=== PATIENT | male | born 1965 | race African-American/Black ===

== ENCOUNTER 2019-05-02 09:58 | Day surgery (SDC) | payer BC, OTHER ==
[2019-05-02] VITALS (16 sets, daily range): BP systolic 110–149; BP diastolic 56–90; PULSE 56–88; RESP 10–21; Ht 180.3 cm; Wt 78.4 kg
[~2019-05-02] VITALS: Ht 180.3 cm; Wt 78.4 kg
--- NOTE | 2019-05-02 06:17 | HPN ---
Date/Time of Note Date/Time of Note DATE: 05/02/19 TIME: 06:17 Interval H&P Admission Note Pt. seen H&P reviewed: No system changes JACOB MARTINEZ MD May 02, 2019 06:17
--- NOTE | 2019-05-02 06:17 | HP ---
Date/Time of Note Date/Time of Note DATE: 05/02/19 TIME: 06:14 Assessment/Plan VTE Prophylaxis SCD applied (from Nsg): Yes Pharmacological prophylaxis: NA/contraindicated, other (Aspirin) Pharm contraindication: low risk/ambulating Lines/Catheters IV Catheter Type (from Nrsg): Saline Lock Urinary Cath still in place: No Assessment/Plan Assessment/Plan Assessment supraspinatus tendon tear Plan: Surgery the form of an arthroscopy with rotator cuff repair and decompression. HPI/ROS Admit Date/Time Admit Date/Time May 02, 2019 Hx of Present Illness Left shoulder pain following trauma after fall ROS No contributory history PMH/Family/Social Past Medical History Medical History: no pertinent history Past Surgical History History of meniscectomy Past Surgical Hx: noncontributory Family History Significant Family History: no pertinent family hx Social History Alcohol Use: occasionally Smoking Status: Current some day smoker Drug Use: none Exam/Review of Systems Vital Signs Vitals Blood pressure 130/70, respirations 24, heart rate 80 Exam Exam Normal appearance Musculoskeletal: joint tenderness (Significant weakness with supraspinatus testing) JACOB MARTINEZ MD May 02, 2019 06:17
--- NOTE | 2019-05-02 06:22 | OPR ---
Date/Time of Note Date/Time of Note DATE: 05/02/19 TIME: 06:20 Operative Report Procedure Date: May 02, 2019 Preoperative Diagnosis Left shoulder rotator cuff tear Postoperative Diagnosis 1. Left shoulder supraspinatus tendon tear 2. Left shoulder acromioclavicular joint arthritis 3. Left shoulder impingement 4. 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 Left shoulder arthroscopic rotator cuff repair 2. Left shoulder arthroscopic distal clavicle excision 3. Left shoulder arthroscopic acromioplasty 4. Left shoulder arthroscopic extensive debridement of glenohumeral joint and labrum. Surgeon see signature line Leather Drier Nelson Cid PA-C Anesthesia Type: general Estimated Blood Loss: minimal Transfusion none Specimen None Grafts/Implants See op note Complications none Pt Condition Post Procedure: stable Disposition: PACU Procedure Description SURGICAL TECH SURGEON: Nelson Cid PA-C was asked to be present at my request as a result of the complexity associated with this procedure including positioning of the extremities, manipulation of the arthroscope and assistance with suture management and implantation of suture anchors. In my opinion, the assistance offered by a surgical tech is insufficient and Mr. Cid should be compensated for his time. PROCEDURE IN DETAIL: Following the administration of general anesthesia supplemented with a peripheral nerve block for postoperative pain control, the patient was examined under anesthesia. Examination of the left shoulder revealed a range of motion of 140 degrees of forward flexion, 100 degrees of abduction, 85 degrees of external rotation and 20 degrees of internal rotation. There is no instability. The patient was then placed in the right lateral decubitus position. Sterile prep and drape was then undertaken of the left shoulder. Anterior and posterior glenohumeral portals were established. Glenohumeral arthroscopy revealed that the humeral and glenoid articular cartilage revealed some diffuse grade 2 changes and in the central portion of the humerus there was some mild grade 2 changes also in a diffuse fashion. There was some mild softening in a generalized fashion.. The superior labrum was diffusely torn with extensive fraying that extended from 9:00 to the 3 o'clock position. The biceps had severe synovitis with a stable biceps anchor. The subscapularis was visualized and it had a solid attachment. No abnormalities were noted anteriorly with the exception of the very severe synovitis which was actually in the notch itself. Further evaluation of the supraspinatus revealed complete tear of the suprasp inatus measuring 1 x 2 cm. Some significant frayed tissue was also noted. Infraspinatus was normal. There was severe synovitis in the entire superior aspect of the joint. The superior labrum then debrided extensively from the 9:00 to the 3 o'clock position was undertaken down to stable tissue. Severe synovitis was also debrided down to stable tissue. The biceps tendon was also debrided and the synovitic reactive tissue from around it removed. The subacromial space was then entered and very severe bursal reactive tissue was noted. There was severe synovitis and a very thickened bursa with several layers of thickening over the rotator cuff tear. There was a thickened coracoacromial ligament, with a 5 to 7 mm acromial prominence noted, which extended medially as well into the acromioclavicular joint. The anterior acromion was then cleared of soft tissue and the coracoacromial ligament released. The acromion was then resected approximately 5 to 7 mm down to a flat surface. The outer surface of the rotator cuff was then inspected. The rotator cuff tear was noted to be complete and a debridement of this area was undertaken down to stable tissue in order to prepare for the repair. The subacromial space was then further evaluated medially. The acromiocl avicular joint was then skeletonized and a significant inferior osteophyte was noted. The AC joint capsule was then opened and the distal clavicle was skeletonized for a distance of 10 mm. The marie was then inserted and 10 mm of the distal clavicle were then excised. The rotator cuff repair was then undertaken. Specifically, a 4.5 mm, triple loaded titanium anchor was then inserted into the tuberosity. The sutures were then passed in a mattress fashion and tied using sliding, locking knots. A solid repair of the rotator cuff was completed. The joint was then thoroughly irrigated bony debris removed, the skin was approximated using 4-0 Monocryl, followed by a sterile dressing. A sling was then applied. The patient was awakened and transported to the recovery room in stable condition. JACOB MARTINEZ MD May 02, 2019 06:22
[~2019-05-02 09:58] MED LIST: BUPIVACAINE 0.5% (SDV) 30 ML, morphine SULFATE (PF) 8 MG, EPINEPHrine 0.3 MG, KETOROLAC... IRR SCH; CEFAZOLIN 2 GM/50 ML (PMX) 50 ML IVPB ONE
[2019-05-02] MEDS ORDERED: GABAPENTIN 300 MG CAP PO ONE (12:00)
[2019-05-02] MEDS ORDERED: DEXAMETHASONE 2 MG TAB PO ONE (12:00)
--- NOTE | 2019-05-02 12:28 | PREAC ---
Date/Time of Note Date/Time of Note DATE: 05/02/19 TIME: 12:27 Anesthesia Eval and Record Evaluation Time Pre-Procedure Interview DATE: 05/02/19 TIME: 12:27 Age 53 Sex male NPO: 8 hrs Preoperative diagnosis Left Shoulder Rotator Cuff Tear Planned procedure Left Shoulder Arthroscopy and Rotator cuff Repair Past Medical History Past Medical History: None Surgery & Anesthesia Issues No known issue Meds Anticoagulation: No Beta Bill within 24 hr: No Reason Beta Bill not given: Pt. not on B-Bill No Active Prescriptions or Reported Meds Current Medications Cefazolin Sodium/ Dextrose 50 ml @ 100 mls/hr PRE-OP ONCE IVPB ; Start 05/02/19 at 06:30; Stop 05/02/19 at 06:59; Status UNV Bupivacaine HCl/ Morphine Sulfate/ Epinephrine/ Ketorolac Tromethamine/ Clonidine/Sodium Chloride/ Vancomycin HCl INTRA-OP IRR ; Start 05/02/19 at 06:30; Status UNV Tranexamic Acid 100 ml @ 200 mls/hr INTRA OP ONCE IVPB ; Start 05/02/19 at 06:30; Stop 05/02/19 at 06:59; Status UNV Meds reviewed: Yes Allergies Coded Allergies: No Known Allergy (Unverified , 05/02/19) Allergies Reviewed: Yes Labs/Studies Labs Reviewed: Reviewed by anesthesiologist Result Diagram: 05/02/19 1155 05/02/19 1155 Laboratory Tests 05/02/19 11:55 test: N/A Studies: ECG (n/a), CXR (n/a) Pre-procedure Exam Airway: Adequate mouth opening, Adequate thyromental dist Mallampati: Mallampati II Teeth: Normal Lung: Normal Heart: Normal ASA Physical Status ASA physical status: 2 Emergency: None Planned Anesthetic General/MAC: ETT Nerve block: Brachial plexus (left) Planned Pain Management Single shot nerve block, Parenteral pain med Pre-operative Attestations Prior to commencing anesthesia and surgery, the patient was re-evaluated, there was verification of: *The patient's identity *The results of appropriate recent lab work and preoperative vital signs *The above evaluation not changing prior to induction *Anesthetic plan, risk benefits, alternative and complications discussed with patient/family; questions answered; patient/family understands, accepts and wishes to proceed. YENNY CAREY MD May 02, 2019 12:28
[2019-05-02] MEDS ORDERED: METOCLOPRAMIDE 10 MG INJ IV PRN (12:30)
[2019-05-02] MEDS ORDERED: FENTAnyl 50 MCG/ML VIAL IV PRN ×3 (12:30)
[2019-05-02] MEDS ORDERED: ONDANSETRON 4 MG INJ IV PRN (12:30)
[2019-05-02] MEDS ORDERED: MEPERIDINE 25 MG INJ IV PRN (12:30)
[2019-05-02] MEDS ORDERED: LABETALOL HCL 20MG INJ IV PRN (12:30)
[2019-05-02] MEDS ORDERED: OXYCODONE/ACETAMINOPHEN (5/325) TAB PO PRN (12:30)
[2019-05-02] MEDS ORDERED: HYDROmorphONE 1 MG/5 ML IV SYRINGE IV PRN ×3 (12:30)
[2019-05-02] MEDS ORDERED: DIPHENHYDRAMINE 50 MG INJ IV PRN (12:30)
[2019-05-02] MEDS ORDERED: EPHEDrine 25 MG/5 ML SYG IV PRN (12:30)
[2019-05-02] MEDS ORDERED: ROPIVACAINE 0.5 % 30 ML VIAL ONE (12:51)
[2019-05-02] MEDS ORDERED: FENTAnyl 50 MCG/ML VIAL ONE (12:51)
[2019-05-02] MEDS ORDERED: PROPOFOL 20 ML ONE ×2 (12:51→14:02)
[2019-05-02] MEDS ORDERED: ROCURONIUM 50 MG INJ ONE (12:51)
[2019-05-02] MEDS ORDERED: MIDAZOLAM 1 MG/ML 2 ML INJ ONE (12:51)
[2019-05-02] MEDS ORDERED: TRANEXAMIC ACID 1GM/100ML(PMX) 100 ML IVPB ONE (13:00)
[2019-05-02] MEDS ORDERED: CEFAZOLIN 1 GM INJ ONE (13:54)
[2019-05-02] MEDS ORDERED: METOCLOPRAMIDE 10 MG INJ ONE (14:03)
[2019-05-02] MEDS ORDERED: KETOROLAC 30 MG INJ ONE (14:03)
[2019-05-02] MEDS ORDERED: ONDANSETRON 4 MG INJ ONE (14:03)
[2019-05-02] MEDS ORDERED: DEXAMETHASONE 4 MG/ML 5 ML INJ ONE (14:03)
[2019-05-02] MEDS ORDERED: SUGAMMADEX SODIUM 200 MG/2 ML VIAL IV ONE (14:03)
[2019-05-02] MEDS ORDERED: TRANEXAMIC ACID 1GM/100ML(PMX) 100 ML ONE (14:18)
[2019-05-02] MEDS ORDERED: EPINEPHrine 1 MG/ML 30 ML INJ IRR ONE (14:42)
[2019-05-02] MEDS ORDERED: MEPERIDINE 100 MG INJ ONE (15:19)
--- NOTE | 2019-05-02 15:20 | PDOCDIS ---
Discharge Instructions DIAGNOSIS Discharge Diagnosis Rotator cuff tear CONDITION [id number] Patient Condition: [id number] Good HOME CARE INSTRUCTIONS: [id number] Diet Instructions: [id number] Regular ACTIVITY: [id number] Activity Restrictions: [id number] Slowly Increase Activity Keep Limb Elevated [id number] Bathing Restrictions: [id number] Shower FOLLOW UP/APPOINTMENTS Follow-up Plan 2 weeks in the office SCHOOL/WORK RELEASE May return to School/Work with: With Restrictions School/Work Release Comment: 5 pound tabletop usage for 6 weeks JACOB MARTINEZ MD May 02, 2019 15:20
--- NOTE | 2019-05-02 15:32 | PAC ---
Date/Time of Note Date/Time of Note DATE: 05/02/19 TIME: 15:32 Post-Anesthesia Notes Post-Anesthesia Note Last documented vital signs Vital Signs Date Temp Pulse Resp B/P (MAP) Pulse Ox O2 O2 Flow FiO2 Time Delivery Rate 05/02/19 98.4 62 16 149/90 99 Room Air 15:25 (109) Activity: WNL Respiratory function: WNL Cardiovascular function: WNL Mental status: Baseline Pain reasonably controlled: Yes Hydration appropriate: Yes Nausea/Vomiting absent: Yes YENNY CAREY MD May 02, 2019 15:32
--- NOTE | 2019-05-03 16:33 | RADRPT ---
Vent Rate: 59 bpm RR Interval: 1012 msec SD Interval: 155 msec QRS Duration: 86 msec QT Interval: 420 msec QTC Interval: 418 msec P-R-T [place]: 62 - 69 - 60 degrees Sinus rhythm...normal P axis, V-rate 50- 99 Electronically Signed By: Davie Morales
== END 2019-05-02 17:56 | disposition home or self-care (01) ==
LOC: SDS 09:58
PROVIDERS: ATTEND Orthopaedic Surgery
DX: M75.102 Unspecified rotator cuff tear or rupture of left shoulder, not specified as traumatic (principal); M13.812 Other specified arthritis, left shoulder; M25.812 Other specified joint disorders, left shoulder
CPT/HCPCS: 29823; 29824; 29826; 29827; 71045; 80053; 81003; 85025; 85610; 85730; 93005; J0171; J0690; J0735; J1100; J1885; J2175; J2250; J2274; J2405; J2765; J2795; J3010; J3370; Z7512; Z7610